=== PATIENT | female | born 1960 | race Caucasian/White ===

== ENCOUNTER 2018-02-20 15:36 | Emergency (ER) | payer OTHER ==
[2018-02-20] MEDS ORDERED: NALOXONE HCL INJ/PF 0.4 MG/1 ML SDV IV ONE (16:10)
--- NOTE | 2018-02-20 16:16 | ER Document Report ---
ED General - General Chief Complaint: Overdose Stated Complaint: GENERAL WEAKNESS Time Seen by Provider: 02/20/18 16:08 Mode of Arrival: Medic Information source: Patient, Friend, Emergency Med Personnel Notes: 57-year-old female brought in by EMS that was called by her significant other after the patient was "acting strange". Patient supposedly was being very drowsy and fell to the floor. This was a witnessed fall. No head trauma noted. Patient has a history of chronic pain and is on Dilaudid, Flexeril, trazodone, Ambien, and Phenergan. She is followed by the resin painter for her chronic back pain. Patient supposedly was prescribed 30 tablets of 4 mg Dilaudid on and there is only 6 tablets left at this time. Significant other denies the patient having any depression, suicidal ideations, or intentional overdose in the past. EMS states that 2 of Narcan was provided intranasally with increased cognition and awareness. Patient was being bagged prior to this. Significant other denies any recent illness such as cough, nausea, vomiting, diarrhea, or complaints of chest or abdominal pain. TRAVEL OUTSIDE OF THE [place] IN LAST 30 DAYS: No - HPI Onset: Just prior to arrival Onset/Duration: Gradual Quality of pain: No pain Severity: Severe Associated symptoms: Other - See above Exacerbated by: Denies Relieved by: Other - See above Similar symptoms previously: No Recently seen / treated by doctor: Yes - Related Data Allergies/Adverse Reactions: morphine [Morphine] Allergy (Severe, Verified 11/18/14 18:20) Asthma NSAIDS (Non-Steroidal Anti-Inflamma [Nsaids] Allergy (Verified 09/21/12 20:57) Past Medical History - General Information source: Patient - Social History Smoking Status: Unknown if Ever Smoked Family History: Reviewed & Not Pertinent, CAD, DM, Hyperlipidemia, Malignancy, Thyroid Disfunction, Other - liver transplant Pulmonary Medical History: Reports: Hx Pneumonia Neurological Medical History: Reports: Hx Migraine Endocrine Medical History: Reports: Hx Hypothyroidism Renal/ Medical History: Reports: Hx Ovarian Cysts Malignancy Medical History: Reports: Hx Ovarian Cancer Musculoskeletal Medical History: Reports Hx Arthritis Psychiatric Medical History: Reports: Hx Depression Past Surgical History: Reports: Hx Section - x2, Hx Cholecystectomy, Hx Gastric Bypass Surgery, Hx Orthopedic Surgery - back surgery, Hx Tonsillectomy - Immunizations Immunizations up to date: Yes Hx Diphtheria, Pertussis, Tetanus Vaccination: Yes Review of Systems - Review of Systems Constitutional: denies: Fever EENT: denies: Eye discharge, Nose discharge Cardiovascular: denies: Chest pain Respiratory: denies: Short of breath Gastrointestinal: denies: Vomiting Genitourinary: denies: Dysuria Musculoskeletal: denies: Leg swelling Skin: Other - no hives. denies: Rash Neurological/Psychological: Other - no slurred speech -: Yes All other systems reviewed and negative Physical Exam - Vital signs Vitals: Temp Resp BP Pulse Ox 97.5 F 14 131/86 H 81 L 02/20/18 16:00 02/20/18 16:00 02/20/18 16:00 02/20/18 16:00 Notes: Reviewed vital signs and nursing note as charted by RN. CONSTITUTIONAL: Alert but somnolent no acute distress arousable with stimulation HEAD: Normocephalic; atraumatic EYES: PERRL; sclerae non-icteric ENT: Normal nose; no rhinorrhea; moist mucous membranes; pharynx without lesions noted NECK: Supple without meningismus; non-tender; no cervical lymphadenopathy, no masses CARD: Regular rate and rhythm; no murmurs, no clicks, no rubs, no gallops; symmetric distal pulses RESP: Normal chest excursion without splinting or tachypnea; breath sounds clear and equal bilaterally; no wheezes, no rhonchi, no rales ABD/GI: Normal bowel sounds; non-distended; soft, non-tender; no palpable organomegaly or masses BACK: The back appears normal and is non-tender to palpation EXT: Normal ROM in all joints; non-tender to palpation; no edema SKIN: No acute lesions noted NEURO: CN II through XII intact; moves all extremities equally; Motor and sensory function intact PSYCH: The patient's mood and manner are appropriate. Grooming and personal hygiene are appropriate. Course - Re-evaluation Re-evalutation: 02/20/18 16:20 Given the history and physical examination, reaction to Narcan, pill bottle that I have examined directly, we will provide another 0.4 mg of IV Narcan, basic labs, Tylenol and aspirin level, EKG, and place the patient on the monitor. Significant other denies a history of suicidal ideations or attempts. I have called and spoken to Mrs. Gonzales at the pain management office who prescribed the medication 2 days ago when she denies any known history of suicide attempts in the past. 02/20/18 16:35 Good response to Narcan. EKG shows a heart rate of around 96, normal axis, narrow QRS, no ST elevation or depression The patient's daughter is now currently at bedside. She states that the patient has been possibly suffering for some increased depression recently secondary to life events. She also states secondary to this the patient's sister recently may have given her some Xanax. Given the report from the daughter and that the patient is somewhat admitting now that she did take the 24 tablets over the last day and half, I will consult the psychology/behavioral health team. I will put a psychiatric hold on the patient for 24 hours so that we can evaluate the patient when she is no longer altered. 02/20/18 17:49 Labs as recorded. History of some transaminitis. Normal white blood cell count and bilirubin. 02/20/18 19:02 Labs as recorded. Patient is somnolent with stable vital signs. I do not believe any CT imaging of the head is necessary at this moment. Patient will be evaluated by the psychology/psychiatry team in the morning. Patient will be kept on the monitor. - Vital Signs Vital signs: Temp Pulse Resp BP Pulse Ox 97.5 F 10 L 131/86 H 95 02/20/18 16:00 02/20/18 17:00 02/20/18 16:00 02/20/18 17:00 - Laboratory Result Diagrams: 02/20/18 16:45 02/20/18 16:45 Laboratory results interpreted by me: 02/20/18 02/20/18 16:45 16:45 RBC 3.23 L Hgb 10.5 L Hct 29.8 L Plt Count 134 L BUN 22 H Creatinine 0.51 L Direct Bilirubin 0.5 H AST 263 H ALT 168 H Alkaline Phosphatase 181 H Total Protein 6.2 L Albumin 3.3 L Salicylates < 1.0 L Acetaminophen < 10 L Critical Care Note - Critical Care Note Total time excluding time spent on procedures (mins): 45 Discharge - Discharge Clinical Impression: Overdose Qualifiers: Encounter type: initial encounter Injury intent: undetermined intent Qualified Code(s): T50.904A - Poisoning by unspecified drugs, medicaments and biological substances, undetermined, initial encounter Condition: Fair Referrals: MICHELLE GUILLAUME MD [Primary Care Provider] - Follow up as needed
[2018-02-20 16:59] LABS: ABSOLUTE EOSINOPHILS # (AUTO) 0.1 10^3/uL (0.0-0.6); ABSOLUTE LYMPHOCYTES (AUTO) 1.1 10^3/uL (0.5-4.7); ABSOLUTE MONOCYTES (AUTO) 0.3 10^3/uL (0.1-1.4); ABSOLUTE NEUT (AUTO) 3.5 10^3/uL (1.7-8.2); BASOPHILS % (AUTO) 0.4 % (0-2); EOSINOPHILS % (AUTO) 2.4 % (0-6); HEMATOCRIT 29.8 % (36.0-47.0); HEMOGLOBIN 10.5 g/dL (12.0-15.5); LYMPHOCYTES % (AUTO) 22.2 % (13-45); MEAN CORPUSCULAR HEMOGLOBIN 32.5 pg (27.0-33.4); MEAN CORPUSCULAR HGB CONC 35.3 g/dL (32.0-36.0); MEAN CORPUSCULAR VOLUME 92 fl (80-97); MONOCYTES % (AUTO) 6.5 % (3-13); PLATELET COUNT 134 10^3/uL (150-450); RED BLOOD COUNT 3.23 10^6/uL (3.72-5.28); RED CELL DISTRIBUTION WIDTH 13.6 % (11.5-14.0); SEGMENTED NEUTROPHILS % (AUTO) 68.5 % (42-78); TOTAL CELLS COUNTED % (AUTO) 100 %; WHITE BLOOD COUNT 5.1 10^3/uL (4.0-10.5)
[2018-02-20 17:39] LABS: ALANINE AMINOTRANSFERASE 168 U/L (9-52); ALBUMIN 3.3 g/dL (3.5-5.0); ALKALINE PHOSPHATASE 181 U/L (38-126); ANION GAP 5 (5-19); ASPARTATE AMINO TRANSFERASE 263 U/L (14-36); BILIRUBIN,DIRECT 0.5 mg/dL (0.0-0.4); BILIRUBIN,TOTAL 0.9 mg/dL (0.2-1.3); BLOOD UREA NITROGEN 22 mg/dL (7-20); CALCIUM 8.6 mg/dL (8.4-10.2); CARBON DIOXIDE 30 mmol/L (22-30); CHLORIDE 103 mmol/L (98-107); GLUCOSE 100 mg/dL (75-110); POTASSIUM 3.7 mmol/L (3.6-5.0); SODIUM 138.4 mmol/L (137-145); TOTAL PROTEIN 6.2 g/dL (6.3-8.2)
[2018-02-20 17:42] LABS: ACETAMINOPHEN < 10 ug/mL (10-30); SALICYLATE < 1.0 mg/dL (2.0-20.0)
[2018-02-20 18:44] LABS: URINE AMPHETAMINES SCREEN NEGATIVE; URINE BARBITURATES SCREEN NEGATIVE; URINE BENZODIAZEPINES SCREEN NEGATIVE; URINE COCAINE SCREEN NEGATIVE; URINE MARIJUANA (THC) SCREEN NEGATIVE; URINE METHADONE SCREEN NEGATIVE; URINE PHENCYCLIDINE SCREEN NEGATIVE
--- NOTE | 2018-02-20 20:07 | EKG REPORT ---
SEVERITY:- NORMAL ECG - SINUS RHYTHM : Confirmed by: Julieta Simon MD 20-Feb-2018 20:06:21
[2018-02-21 08:02] VITALS: BP 99/60
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
--- NOTE | 2018-02-22 18:15 | PSYCHOLOGICAL NOTE ---
Psych Note - Psych Note Psych Note: Reason for Consult: possible overdose/general weakness Consent for permissions: Diego Magaña, ,patient's at bedside per patient request Pt arrives to ED via EMS from home. EMS reports pt got her 2mg dilaudid filled 2 days ago and now 24 tablets are no longer in her bottle. Upon EMS arrival pt is breathing shallow at 6-8 breaths per minute, 70% on room air. EMS started assisted breathing with BVM with saturations improving to 95%. EMS gave narcan IN x2 with minimal arousal. Patient reports that she does not remember fainting, who found her or how she arrived to the hospital. Patient reports that the last thing that she does remember is doing stuff around the house and then she woke up in the hospital. Patient disclosed that she keeps 2 days worth of pills in one bottle in her purse and that she fills that bottle from a full bottle of medicine. Patient states that the EMS found the bottle with just the 2 pills in it and thought that she had taken all of the pills. Patient states emphatically that she was not trying to kill herself and it was just a misunderstanding. Patient also states that she will schedule an appointment with [facility] to review her medication. Patient's states that he believes she had a bad reaction from the medication and fainted. Patient was just at the pain management clinic and got an extended release form of medicine and this was her first time taking it. Patient is alert and oriented to person, place, time and circumstance. Mood is euthymic. Patient denies suicidal ideation. Behaviors are congruent with an intact reality based presentation i.e. organized and linear thought process. Eye contact is well maintained. Conversational speech was within normal rate, tone and prosody. Intellectual abilities appear to be within the average range. Attention and concentration are fair. Insight, judgment, impulse control are good. No medication recommendations at this time. Diagnosis: 296.21 (F32.0) Major Depressive Disorder, Mild per patient report Impression/Plan: Patient is cleared from acute psychiatric services. Patient denies suicidal ideation. Patient's says that his has never spoken about killing herself and that her normal living pattern has not changed. Patient states that she has had a recent change in medication but plans to visit her pain management clinic to review her medications. Dr. Souza was consulted on the care and management of this patient.
== END 2018-02-21 11:27 | disposition home or self-care (01) ==
LOC: ER 15:36
DX: T50.991A Poisoning by other drugs, medicaments and biological substances, accidental (unintentional), initial encounter (principal)
CPT/HCPCS: 93005; 99284; 96374; 36415; 80307 ×3; 85025; 80053; 93010; J2310

== ENCOUNTER 2019-05-24 12:03 | Emergency (ER) | payer OTHER ==
[2019-05-24] MEDS ORDERED: HYDROMORPHONE HCL INJ/PF 2 MG/ML AMPULE IV ONE (12:09)
[2019-05-24] MEDS ORDERED: ONDANSETRON HCL INJ/PF 4 MG/2 ML SDV IV ONE (12:10)
[2019-05-24] MEDS ORDERED: NORMAL SALINE 1000 ML 1,000 ML IV ONE (12:10)
--- NOTE | 2019-05-24 12:13 | ER Document Report ---
ED Medical Screen (RME) - General Chief Complaint: Possible Kidney Stone Stated Complaint: FLANK PAIN Time Seen by Provider: 05/24/19 12:05 Primary Care Provider: MICHELLE GUILLAUME MD [Primary Care Provider] - Follow up as needed TRAVEL OUTSIDE OF THE [place] IN LAST 30 DAYS: No - HPI Notes: 05/24/19 12:12 58-year-old female to the emergency department with acute onset of left-sided flank pain that radiates down into her left upper quadrant that began about an hour ago. She states that the pain is severe and she cannot get comfortable. She denies any nausea or vomiting. She denies any fevers or chills. She is never had a kidney stone. She denies any urinary complaints. Patient is very uncomfortable in triage. Performed a brief medical screening exam on the patient and determined that she will need further management and evaluation by main side provider. I have ordered imaging studies, medication, lab work to expedite her care today. - Related Data Allergies/Adverse Reactions: morphine [Morphine] Allergy (Severe, Verified 05/24/19 12:07) Asthma NSAIDS (Non-Steroidal Anti-Inflamma [Nsaids] Allergy (Verified 05/24/19 12:07) Past Medical History Pulmonary Medical History: Reports: Hx Pneumonia Neurological Medical History: Reports: Hx Migraine Endocrine Medical History: Reports: Hx Hypothyroidism Renal/ Medical History: Reports: Hx Ovarian Cysts. Denies: Hx Peritoneal Dialysis Malignancy Medical History: Reports: Hx Ovarian Cancer Musculoskeltal Medical History: Reports Hx Arthritis Psychiatric Medical History: Reports: Hx Depression Past Surgical History: Reports: Hx Section - x2, Hx Cholecystectomy, Hx Gastric Bypass Surgery, Hx Orthopedic Surgery - back surgery, Hx Tonsillectomy - Immunizations Immunizations up to date: Yes Hx Diphtheria, Pertussis, Tetanus Vaccination: Yes Physical Exam - Vital signs Vitals: Temp Pulse Resp BP Pulse Ox 97.9 F 86 22 H 149/120 H 99 05/24/19 12:05/24/19 12:05/24/19 12:05/24/19 12:05/24/19 12:09 Course - Vital Signs Vital signs: Temp Pulse Resp BP Pulse Ox 97.9 F 86 22 H 149/120 H 99 05/24/19 12:05/24/19 12:05/24/19 12:09 05/24/19 12:09 05/24/19 12:09 Doctor's Discharge - Discharge Referrals: MICHELLE GUILLAUME MD [Primary Care Provider] - Follow up as needed
[2019-05-24] MEDS ORDERED: ONDANSETRON 4 MG TAB.RAPDIS PO ONE (12:36)
--- NOTE | 2019-05-24 13:01 | ER Document Report ---
Entered by KHALIF RHODES SCRIBE 05/24/19 1238 Acting as scribe for:EMILY MACKENZIE MD ED General - General Chief Complaint: Possible Kidney Stone Stated Complaint: FLANK PAIN Time Seen by Provider: 05/24/19 12:05 Primary Care Provider: MICHELLE GUILLAUME MD [NO LOCAL MD] - Follow up as needed Mode of Arrival: Ambulatory Information source: Patient Notes: This 58 year old female patient presents to the ED today with complaints of left-sided flank pain with radiation up her back and lower abdomen that began around 11:00 AM. Patient describes pain as "coming like a wave" and that she couldn't sit still or get comfortable. Patient states that she took 800mg of motrin a home prior to arrival and the symptoms have mostly resolved. Patient denies nausea, vomiting, or history of kidney stones. Patient has not had a flu shot this year, but reports that she had the flu recently while on a 2-week cruise. TRAVEL OUTSIDE OF THE [place] IN LAST 30 DAYS: No COUNTRY TRAVELED TO/FROM: Thursday - Related Data Allergies/Adverse Reactions: morphine [Morphine] Allergy (Severe, Verified 05/24/19 12:07) Asthma NSAIDS (Non-Steroidal Anti-Inflamma [Nsaids] Allergy (Verified 05/24/19 12:07) Past Medical History - General Information source: Patient, [facility] Records - Social History Smoking Status: Never Smoker Cigarette use (# per day): No Chew tobacco use (# tins/day): No Smoking Education Provided: No Frequency of alcohol use: None Drug Abuse: Marijuana Family History: Reviewed & Not Pertinent, CAD, DM, Hyperlipidemia, Malignancy, Thyroid Disfunction, Other - liver transplant Patient has suicidal ideation: No Patient has homicidal ideation: No Pulmonary Medical History: Reports: Hx Pneumonia Neurological Medical History: Reports: Hx Migraine Endocrine Medical History: Reports: Hx Hypothyroidism Renal/ Medical History: Reports: Hx Ovarian Cysts Malignancy Medical History: Reports: Hx Ovarian Cancer Musculoskeletal Medical History: Reports Hx Arthritis Psychiatric Medical History: Reports: Hx Depression Past Surgical History: Reports: Hx Section - x2, Hx Cholecystectomy, Hx Gastric Bypass Surgery, Hx Orthopedic Surgery - nerve ablation in lower back, Hx Tonsillectomy - Immunizations Immunizations up to date: Yes Hx Diphtheria, Pertussis, Tetanus Vaccination: Yes Review of Systems - Review of Systems Constitutional: No symptoms reported EENT: No symptoms reported Cardiovascular: No symptoms reported Respiratory: No symptoms reported Gastrointestinal: See HPI, Abdominal pain. denies: Nausea, Vomiting Genitourinary: See HPI, Flank pain Female Genitourinary: No symptoms reported Musculoskeletal: No symptoms reported Skin: No symptoms reported Hematologic/Lymphatic: No symptoms reported Neurological/Psychological: No symptoms reported -: Yes All other systems reviewed and negative Physical Exam - Vital signs Vitals: Temp Pulse Resp BP Pulse Ox 97.9 F 86 22 H 149/120 H 99 05/24/19 12:09 05/24/19 12:09 05/24/19 12:09 05/24/19 12:09 05/24/19 12:09 Interpretation: Normal - General General appearance: Alert - HEENT Head: Normocephalic, Atraumatic Eyes: Normal Pupils: PERRL - Respiratory Respiratory status: No respiratory distress Chest status: Nontender Breath sounds: Normal Chest palpation: Normal - Cardiovascular Rhythm: Regular Heart sounds: Normal auscultation Murmur: No - Abdominal Inspection: Normal Distension: No distension Bowel sounds: Normal Tenderness: Tender - LLQ tenderness with palpation Organomegaly: No organomegaly - Back Back: CVA tenderness - left CVA tenderness with palpation - Extremities General upper extremity: Normal inspection General lower extremity: Normal inspection - Neurological Neuro grossly intact: Yes - Psychological Associated symptoms: Normal affect, Normal mood - Skin Skin Temperature: Warm Skin Moisture: Dry Skin Color: Normal Course - Re-evaluation Re-evalutation: 05/24/19 14:57 After extensive negative work-up for the severe sharp sudden left-sided flank pain with intermittent easing and worsening, in a patient with prior gastric bypass, and lumbar nerve ablations--the patient recalled tipping up a stiff straw hat washer and holding it up for several minutes 2 days ago. This is the most likely cause for the pain which does seem to be muscular in nature. - Vital Signs Vital signs: Temp Pulse Resp BP Pulse Ox 97.9 F 86 22 H 149/120 H 99 05/24/19 12:09 05/24/19 12:09 05/24/19 12:09 05/24/19 12:09 05/24/19 12:09 - Laboratory Laboratory results interpreted by me: 05/24/19 13:25 Ur Leukocyte Esterase TRACE H Urine Ascorbic Acid 40 H Discharge - Discharge Clinical Impression: Flank pain Condition: Stable Disposition: HOME, SELF-CARE Additional Instructions: Flank Pain We weren't able to prove an exact cause for your flank pain. Pain in the flank can be caused by a muscle strain or spasm. Sometimes a kidney stone causes pain, but can't be found on our tests. Infection in the kidney should be evident on a urine test. Early shingles can occasionally cause flank pain, without the rash that proves the diagnosis. On rare occasions, disease of the pancreas, aorta, spleen, or colon can create pain in the flank. At this time, there's no evidence of a dangerous condition, and it seems safe for you to be at home. If the pain goes away and does not come back, no further testing will be needed. If pain persists, or becomes more severe, we may need to repeat some tests or order additional new testing. Blood in the urine, urgency to urinate frequently, and pain that radiates to the groin can indicate a kidney stone. Fever may mean that the pain is due to infection, either of the kidney or the colon (diverticulitis). If your pain is early shingles, you should develop an eruption of blisters in the painful area within a few days. Call the doctor or return if you have pain that is spreading or becoming more severe, pain that does not resolve with time, fever, or any other new symptoms. RETURN TO THE EMERGENCY ROOM IF ANY NEW OR WORSENING SYMPTOMS. Referrals: MICHELLE GUILLAUME MD [NO LOCAL MD] - Follow up as needed Scribe Attestation: 05/24/19 13:01 I personally performed the services described in the documentation, reviewed and edited the documentation which was dictated to the scribe in my presence, and it accurately records my words and actions. I personally performed the services described in the documentation, reviewed and edited the documentation which was dictated to the scribe in my presence, and it accurately records my words and actions.
--- NOTE | 2019-05-24 13:23 | RADIOLOGY REPORT (SQ) ---
EXAM DESCRIPTION: CT ABD/PELVIS NO ORAL OR IV COMPLETED DATE/TIME: 05/24/2019 1:12 pm REASON FOR STUDY: flank pain, eval kidney stone COMPARISON: 11/18/2014 TECHNIQUE: CT scan of the abdomen and pelvis performed without intravenous or oral contrast. Images reviewed with lung, soft tissue, and bone windows. Reconstructed coronal and sagittal MPR images revi ewed. All images stored on PACS. All CT scanners at this facility use dose modulation, iterative reconstruction, and/or weight based d osing when appropriate to reduce radiation dose to as low as reasonably achievable (ALARA). [facility]: Dose Right [facility]: CareDose [facility]: Dose Right [facility]: Teradose 4D [facility]: Smart KeriCure RADIATION DOSE: CT Rad equipment meets quality standard of care and radiation dose reduction techniq ues were employed. CTDIvol: 7.0 mGy. DLP: 368 mGy-cm.mGy. LIMITATIONS: None. FINDINGS: LOWER CHEST: No significant findings. No nodules or infiltrates. NON-CONTRASTED LIVER, SPLEEN, ADRENALS: Evaluation limited by lack of IV contrast. No identified sign ificant masses. PANCREAS: No masses. No peripancreatic inflammatory changes. GALLBLADDER: Surgically absent. RIGHT KIDNEY AND URETER: No solid masses. No significant calcification. No hydronephrosis or hydroure ter. LEFT KIDNEY AND URETER: No solid masses. No significant calcification. No hydronephrosis or hydrouret er. AORTA AND RETROPERITONEUM: No aneurysm. No retroperitoneal masses or adenopathy. BOWEL AND PERITONEAL CAVITY: Status post Melissa-en-Y gastric bypass. No obvious masses or inflammatory changes. No free fluid. APPENDIX: Normal. PELVIS, BLADDER, AND ABDOMINAL WALL:No abnormal masses. No free fluid. Bladder normal. BONES: No significant findings. OTHER: No other significant finding. IMPRESSION: 1. No acute noncontrast CT findings to explain abdominal pain. No evidence of urinary tract calculus or hydronephrosis. 2. Status post Melissa-en-Y gastric bypass and cholecystectomy. TECHNICAL DOCUMENTATION: JOB ID: [id number] Quality ID # [id number]: Final reports with documentation of one or more dose reduction techniques (e.g., Au tomated exposure control, adjustment of the mA and/or kV according to patient size, use of iterative reconstruction technique) 2010 [employer]- All Rights Reserved Reading location - IP/workstation name: [email or web address]
[2019-05-24 14:06] LABS: APPEARANCE,URINE SLIGHTLY-CLOUDY; BILIRUBIN,URINE NEGATIVE (NEGATIVE); COLOR,URINE YELLOW; GLUCOSE, URINE NEGATIVE (NEGATIVE); KETONES,URINE NEGATIVE (NEGATIVE); LEUKOCYTE ESTERASE,URINE TRACE (NEGATIVE); NITRITE,URINE NEGATIVE (NEGATIVE); PROTEIN,URINE NEGATIVE (NEGATIVE); URINE SPECIFIC GRAVITY 1.019; UROBILINOGEN,URINE NEGATIVE mg/dL (<2.0)
[2019-05-24 15:18] VITALS: BP 106/68
== END 2019-05-24 15:18 | disposition home or self-care (01) ==
LOC: ER 12:03
DX: R10.9 Unspecified abdominal pain (principal); Z88.6 Allergy status to analgesic agent; Z90.49 Acquired absence of other specified parts of digestive tract; Z98.84 Bariatric surgery status
CPT/HCPCS: 99284; 81001; 74176; S0119